=== PATIENT | female | born 1975 | race Caucasian/White ===

== ENCOUNTER 2018-10-21 14:43 | Emergency (ER) | payer MEDICAID, OTHER ==
[~2018-10-21] VITALS: Ht 160 cm; Wt 68.0 kg
[~2018-10-21 14:43] MED LIST: ALPR0.5T8 PO; METF-440 PO
--- NOTE | 2018-10-21 15:00 | NUR ---
at bedside to examine pt.
[2018-10-21] MEDS ORDERED: diphenhydrAMINE 50 MG/1 ML VIAL IV ONE (15:15)
[2018-10-21] MEDS ORDERED: FAMOTIDINE. 20 MG/2 ML VIAL IV ONE ×2 (15:15→15:21)
[2018-10-21] MEDS ORDERED: methylPREDNISolone SOD SUCC 125 MG/2 ML VIAL IV ONE (15:15)
[2018-10-21] MEDS ORDERED: diphenhydrAMINE 50 MG/1 ML VIAL ONE (15:20)
[2018-10-21] MEDS ORDERED: methylPREDNISolone SOD SUCC 125 MG/2 ML VIAL ONE (15:20)
--- NOTE | 2018-10-21 16:43 | NUR ---
Dcd instructions and prescription given to pt. pt. left room ambulatory, AAOX4. Vitals stable itchiness relieved.
== END 2018-10-21 16:48 | disposition home or self-care (01) ==
LOC: ER 14:43
DX: R21 Rash and other nonspecific skin eruption (principal); T36.1X5A Adverse effect of cephalosporins and other beta-lactam antibiotics, initial encounter; F17.200 Nicotine dependence, unspecified, uncomplicated; Z79.899 Other long term (current) drug therapy; Y92.89 Other specified places as the place of occurrence of the external cause
CPT/HCPCS: 96374; 96375; 99283; J1200; J2930; J3490; A4663

== ENCOUNTER 2018-10-23 02:08 | Emergency (ER) | payer MEDICAID ==
[~2018-10-23] VITALS: Ht 162.6 cm; Wt 77.1 kg
--- NOTE | 2018-10-23 02:18 | NUR ---
Pt ambulates to ER with c/o itchy rash throughout her body, erasmo bilateral thighs & arms. Pt states she was seen here 2 days ago for same c/o & was given rx for prednisone, famotidine, & benadryl w no relief. Pt has hx of OCD, taking sertraline. Pt states has also been taking amoxicillin x 2 weeks due to toothache. Pt appears in no apparent distress. VSS. SA02 99% room air. No chest pain/sob.
[2018-10-23] MEDS ORDERED: EPINEPHRINE 1 MG/1 ML AMP ONE (02:23)
[2018-10-23] MEDS ORDERED: hydrOXYzine HCL 25 MG TABLET ONE (02:30)
[2018-10-23] MEDS ORDERED: hydrOXYzine HCL 25 MG TABLET PO ONE (02:30)
[2018-10-23] MEDS ORDERED: EPINEPHRINE 1 MG/1 ML AMP IM ONE (02:30)
--- NOTE | 2018-10-23 03:05 | NUR ---
Pt rash appears better. NAD noted. Patient discharged to home in stable conditon. Written and verbal after care instructions given. Patient verbalizes understanding of instructions.
[2018-10-23 03:21] VITALS: BP 121/79
== END 2018-10-23 03:21 | disposition home or self-care (01) ==
LOC: ER 02:09
DX: L50.9 Urticaria, unspecified (principal); T36.0X5A Adverse effect of penicillins, initial encounter; F17.200 Nicotine dependence, unspecified, uncomplicated; Z79.899 Other long term (current) drug therapy; Y92.89 Other specified places as the place of occurrence of the external cause
CPT/HCPCS: 96372; 99283; J0171; A4663

== ENCOUNTER 2018-10-27 03:39 | Emergency (ER) | payer MEDICAID ==
[~2018-10-27] VITALS: Ht 162.6 cm; Wt 65.8 kg
--- NOTE | 2018-10-27 03:48 | NUR ---
ERMD at bedside for MSE
--- NOTE | 2018-10-27 03:50 | NUR ---
Maury, Diet Aide, at bedside for [facility] patient interpreting.
[2018-10-27] MEDS ORDERED: methylPREDNISolone SOD SUCC 125 MG/2 ML VIAL IM ONE (04:00)
[2018-10-27] MEDS ORDERED: FAMOTIDINE 20 MG TABLET PO ONE (04:00)
[2018-10-27] MEDS ORDERED: methylPREDNISolone SOD SUCC 125 MG/2 ML VIAL ONE (04:04)
[2018-10-27] MEDS ORDERED: FAMOTIDINE 20 MG TABLET ONE (04:04)
--- NOTE | 2018-10-27 04:42 | NUR ---
Patient discharged to home in stable conditon. Written and verbal after care instructions given. Patient verbalizes understanding of instructions. Patient ambulated with stable gait.
[2018-10-27 04:43] VITALS: BP 105/68
== END 2018-10-27 04:44 | disposition home or self-care (01) ==
LOC: ER 03:40
DX: J39.2 Other diseases of pharynx (principal); F17.290 Nicotine dependence, other tobacco product, uncomplicated; Z79.899 Other long term (current) drug therapy
CPT/HCPCS: 96372; 99283; 99406; J2930; A4663

== ENCOUNTER 2021-12-22 20:43 | Emergency (ER) | payer SELFPAY ==
[~2021-12-22] VITALS: Ht 157.5 cm; Wt 64.0 kg
--- NOTE | 2021-12-22 20:56 | NUR ---
Dr Haque at bedside, MSE in progress.
[2021-12-22] MEDS ORDERED: PENICILLIN G BENZATHINE 2.4 MMU/4 ML DISP.SYRIN IM ONE ×2 (21:15)
[2021-12-22] MEDS ORDERED: TRIA5PAS4 DT (21:16)
--- NOTE | 2021-12-22 21:42 | NUR ---
Patient discharged to home in stable condition. Written and verbal after care instructions given. Patient verbalizes understanding of instructions. Stressed follow up or return to ER for worsening s/s. pt ambulated with steady gait. denies pain. no SOB. no chest pain. AOx4.
[2021-12-22 21:45] VITALS: BP 122/85
== END 2021-12-22 21:45 | disposition home or self-care (01) ==
LOC: ER 20:46
DX: K12.0 Recurrent oral aphthae (principal); K05.10 Chronic gingivitis, plaque induced; F17.210 Nicotine dependence, cigarettes, uncomplicated; R73.03 Prediabetes; F41.9 Anxiety disorder, unspecified; Z79.84 Long term (current) use of oral hypoglycemic drugs; Z79.899 Other long term (current) drug therapy
CPT/HCPCS: 96372; 99283; 99406; J0561; A4663

== ENCOUNTER 2022-03-30 12:02 | Emergency (ER) | payer MEDICAID, OTHER ==
[~2022-03-30] VITALS: Ht 160 cm; Wt 68.0 kg
[~2022-03-30 12:02] MED LIST changes: +TRIA5PAS4 DT
[2022-03-30] MEDS ORDERED: TDAP DIPH,PERTUSS,TET VAC/PF 0.5 ML DISP.SYRIN IM ONE ×2 (12:13→12:15)
[2022-03-30] MEDS ORDERED: MUPIROCIN 2% OINT 22 GM TUBE ONE (12:14)
[2022-03-30] MEDS ORDERED: BACI28.33 TP (12:14)
[2022-03-30] MEDS ORDERED: IBUPROFEN 600 MG TABLET ONE (12:14)
[2022-03-30] MEDS ORDERED: MUPIROCIN 2% OINT 22 GM TUBE TP ONE (12:15)
[2022-03-30] MEDS ORDERED: IBUPROFEN 600 MG TABLET PO ONE (12:15)
--- NOTE | 2022-03-30 12:39 | NUR ---
PT WAS EVALUATED BY DR CUELLAR. PT WAS D/C'd TO HOME. D/C ISTRUCTIONS GIVEN TO THE PT BY DR CUELLAR.
[2022-03-30 12:49] VITALS: BP 142/76
== END 2022-03-30 12:50 | disposition home or self-care (01) ==
LOC: ER 12:02
DX: T24.202A Burn of second degree of unspecified site of left lower limb, except ankle and foot, initial encounter (principal); T31.0 Burns involving less than 10% of body surface; X12.XXXA Contact with other hot fluids, initial encounter; Y93.89 Activity, other specified; Y92.89 Other specified places as the place of occurrence of the external cause; R73.03 Prediabetes; Z79.84 Long term (current) use of oral hypoglycemic drugs; F41.9 Anxiety disorder, unspecified; E07.9 Disorder of thyroid, unspecified
CPT/HCPCS: 16020; 90715; A4663

== ENCOUNTER 2022-06-28 22:56 | Emergency (ER) | payer OTHER ==
[~2022-06-28] VITALS: Ht 157.5 cm; Wt 64.0 kg
[~2022-06-28 22:56] MED LIST changes: +BACI28.33 TP
--- NOTE | 2022-06-29 00:52 | NUR ---
currently seeing and examining by Dr. Frederick.
[2022-06-29] MEDS ORDERED: SERTRALINE HCL 50 MG TABLET ONE (00:59)
[2022-06-29] MEDS ORDERED: SERTRALINE HCL 50 MG TABLET PO ONE (01:00)
[2022-06-29] MEDS ORDERED: SERT100T PO (01:02)
[2022-06-29 01:11] VITALS: BP 122/80
--- NOTE | 2022-06-29 01:11 | NUR ---
Patient discharged to home in stable condition. Written and verbal after care instructions given. Patient verbalizes understanding of instructions. Stressed follow up or return to ER for worsening s/s. Given prescription. VSS
== END 2022-06-29 01:12 | disposition home or self-care (01) ==
LOC: ER 22:56
DX: F42.9 Obsessive-compulsive disorder, unspecified (principal); F41.9 Anxiety disorder, unspecified; R73.03 Prediabetes; Z79.899 Other long term (current) drug therapy
CPT/HCPCS: A4663

== ENCOUNTER 2023-02-03 16:32 | Emergency (ER) | payer OTHER ==
[~2023-02-03] VITALS: Ht 157.5 cm; Wt 65.8 kg
[~2023-02-03 16:32] MED LIST changes: +SERT100T PO
--- NOTE | 2023-02-03 17:08 | NUR ---
Patient ambulated yo room #1a, informed of plan of care, awaiting md exam. No s/s of any distress noted. right eye with swelling noted to lower lid, and eye sack, will contine to monitor.
--- NOTE | 2023-02-03 17:10 | NUR ---
ER provider has seen patient, will continue to monitor.
[2023-02-03] MEDS ORDERED: FLUORESCEIN SODIUM 1 MG STRIP ONE (17:12)
[2023-02-03] MEDS ORDERED: TETRACAINE HCL 0.5% OPHT DROP 2 ML BOTTLE ONE (17:12)
[2023-02-03] MEDS ORDERED: TETRACAINE HCL 0.5% OPHT DROP 2 ML BOTTLE OP ONE (17:15)
[2023-02-03] MEDS ORDERED: FLUORESCEIN SODIUM 1 MG STRIP OP ONE (17:15)
[2023-02-03] MEDS ORDERED: AMOX-430 PO (17:48)
--- NOTE | 2023-02-03 17:58 | NUR ---
Provider was at bedside for treatment, ACI given states understanding and remains stable for discharge.
[2023-02-03] MEDS ORDERED: SERT100T PO (18:00)
[2023-02-03 18:04] VITALS: BP 116/76
== END 2023-02-03 18:05 | disposition home or self-care (01) ==
LOC: ER 16:34
DX: L03.213 Periorbital cellulitis (principal); F17.210 Nicotine dependence, cigarettes, uncomplicated; Z79.899 Other long term (current) drug therapy
CPT/HCPCS: A4663

== ENCOUNTER 2024-06-09 22:24 | Emergency (ER) | payer SELFPAY ==
[~2024-06-09] VITALS: Ht 157.5 cm; Wt 80.7 kg
[~2024-06-09 22:24] MED LIST changes: +AMOX-430 PO
[2024-06-10] MEDS ORDERED: CEPH500T PO (00:10)
[2024-06-10] MEDS ORDERED: DIPH25TA25 PO (00:10)
[2024-06-10] MEDS ORDERED: CEFTRIAXONE 1 G VIAL ONE (00:14)
[2024-06-10] MEDS ORDERED: diphenhydrAMINE 50 MG CAPSULE ONE (00:14)
[2024-06-10] MEDS: CEFTRIAXONE 1 G VIAL IM ONE (00:22)
[2024-06-10] MEDS: diphenhydrAMINE 50 MG CAPSULE PO ONE (00:23)
[2024-06-10 00:36] VITALS: BP 138/74; TEMP 98.2; O2SAT 99
== END 2024-06-10 00:36 | disposition home or self-care (01) ==
LOC: ER 22:33
DX: T78.3XXA Angioneurotic edema, initial encounter (principal); F41.9 Anxiety disorder, unspecified; F32.A Depression, unspecified; Z79.84 Long term (current) use of oral hypoglycemic drugs; Z79.899 Other long term (current) drug therapy; Z88.7 Allergy status to serum and vaccine; X58.XXXA Exposure to other specified factors, initial encounter; Y93.89 Activity, other specified; Y92.89 Other specified places as the place of occurrence of the external cause; Y99.8 Other external cause status
CPT/HCPCS: 99283; 96372; Q0163; J0696; A4606; A4663